=== PATIENT | male | born 1960 | race Hispanic/Latino ===

== ENCOUNTER 2025-02-28 07:12 | Day surgery (SDC) | payer OTHER ==
[2025-02-26 13:48] LABS: Absolute Eosinophils 0.2 K/uL (0-0.5); Absolute Lymphocytes (CBC) 3.5 K/uL (0.7-4.9); Absolute Monocytes 0.7 K/uL (0.1-1.3); Absolute Neutrophil 3.4 K/uL (1.8-8.0); Basophils % 0.2 % (0-1.3); Eosinophils % 2.1 % (0-4.4); Hematocrit 49.3 % (39.6-49.0); Lymphocytes % 45.3 % (15.3-44.8); MCH 29.2 pg (27.0-35.0); MCHC 34.4 g/dL (32.0-36.0); MPV 9.5 fL (7.6-11.3); Monocytes % 8.8 % (3.3-12.3); Neutrophils % 43.6 % (41.7-73.7); Nucleated Red Blood Cells % 0.1 % (0-0); Platelets 238 thou/uL (152-406); RBC Red Blood Cell Count 5.81 M/uL (4.33-5.43); Red Cell Distribution Width 14.9 % (12.1-15.2)
[2025-02-26 14:00] LABS: Anion Gap 6.8 mEq/L (5.0-15.0); Potassium 3.8 mEq/L (3.5-5.1)
[2025-02-28] MEDS ORDERED: propofoL 200 MG/20 ML VIAL IV ONE ×2 (08:26)
[2025-02-28] MEDS: Ringers Lactate 1,000 ML IV ONE (08:51)
[2025-02-28 10:04] VITALS: TEMP 97.5
[2025-02-28 10:06] VITALS: O2SAT 99
[2025-02-28 10:08] VITALS: BP 104/71
--- NOTE | 2025-02-28 13:33 | EKG ---
Test Date: 2025-02-26 Test Time: 12:48:01 Cigarette Tipper: GEN MEASUREMENT RESULTS: Intervals: Rate: 70 KS: 172 QRSD: 76 QT: 362 QTc: 390 Loop: P: 63 KS: 172 QRS: -4 T: 32 INTERPRETIVE STATEMENTS: Normal sinus rhythm Normal ECG No previous ECG available for comparison Electronically Signed On 02-28-25 13:20:12 CDT by Genaro Lewis
== END 2025-02-28 10:02 | disposition home or self-care (01) ==
LOC: OR 07:12
PROVIDERS: ATTEND Surgery
PROC: 0DBL8ZX Excision of Transverse Colon, Via Natural or Artificial Opening Endoscopic, Diagnostic (ICD-10-PCS; 2025-02-28)
PROC: 0DBP8ZX Excision of Rectum, Via Natural or Artificial Opening Endoscopic, Diagnostic (ICD-10-PCS; 2025-02-28)
PROC: 0DBK8ZX Excision of Ascending Colon, Via Natural or Artificial Opening Endoscopic, Diagnostic (ICD-10-PCS; principal; 2025-02-28 08:45)
DX: Z12.11 Encounter for screening for malignant neoplasm of colon (principal); Z86.0100 Personal history of colon polyps, unspecified; K57.30 Diverticulosis of large intestine without perforation or abscess without bleeding; K64.8 Other hemorrhoids; D12.2 Benign neoplasm of ascending colon; D12.3 Benign neoplasm of transverse colon; K63.5 Polyp of colon
CPT/HCPCS: 45380; 93005; 85025; 80048; 36415; 88305; J2704 ×2; J7120